=== PATIENT | female | born 1965 | race Caucasian/White ===

== ENCOUNTER → 2016-08-09 | Day surgery (SDC) | payer OTHER ==
--- NOTE | 2016-08-08 17:56 | TH ---
cc: DARREL MORAES M.D. DATE 08/09/2016 DATE OF 1965 PROCEDURE TO BE PERFORMED Slim lipoma of the thighs and torso. HISTORY OF PRESENT ILLNESS A pleasant, otherwise healthy 46-year-old female that has some small areas of lipodystrophy on the areas previously describesd. She is here today to undergo SlimLipo. PAST MEDICAL HISTORY The patient has past medical history that does include: Knee surgery in 2009. MEDICATIONS The only medications as needed are: 1. Ambien. 2. Lexapro. SOCIAL HISTORY Her habits are benign. REVIEW OF SYSTEMS Otherwise unremarkable. PHYSICAL EXAM CONSTITUTIONAL: General appearance. The patient is a well-developed female in no acute distress. Body habitus is within normal limits. There appear to be no deformities. Appears to have attention to grooming. HEENT: Eyes Conjunctivae and lids are within normal anatomical limits. The pupils are reactive to light and accommodation, size, and symmetry. There is no evidence of exudate, hemorrhage, or vessel change. Ears, mouth, nose, and throat The external inspection of the ears and nose fails to demonstrate any pathology, scars, lesions, or masses. Nasal mucosa, septum, and turbinates appear to be well hydrated as well as the lips and gums. No evidence of masses in the hypopharynx or submental area. RESPIRATORY: The patient shows no evidence of intercostal refractions. Otherwise, lungs are clear to auscultation without any abnormal sounds or rubs. CARDIOVASCULAR: The patient has a normal heart rate and rhythm. There is no evidence of noticed carotid bruits. Femoral pulses and pedal pulses in extremities are also within normal limits. GASTROINTESTINAL/ABDOMEN: Soft with no evidence of masses or tenderness. Unable to palpate the liver or spleen. No evidence of hernia. MUSCULOSKELETAL: Appears to be reasonable range of motion on the head, neck, spine, ribs, pelvis, right upper extremity, left upper extremity, right lower extremity, and left lower extremity. The muscle strength and tone appears to be equal and within accepted limits. SKIN: There is no rashes, lesions, or ulcers on the trunk, back, and extremities. NEUROLOGICAL: Examination is grossly normal. PSYCHIATRIC: The patient appears to have good orientation of time, place, and person. Does not appear to have any mood effects of depression, anxiety, or agitation. There are small areas of lipodystrophy located on the upper and lower abdomen, flanks and back as well as the lateral, anterior mid and thighs including the medial knees. My recommendation is SlimLipo. The risks and possible complications were discussed. MD MAURA Briones/CHAPO /5:03 PM /5:42 PM
[~2016-08-09] MED LIST: ACETAMINOPHEN 1000 MG/100 ML VIAL IV ONE; ACETAMINOPHEN/HYDROcodone 325 MG/5 MG TAB ONE; LACTATED RINGER'S 1000 ML INJ 1,000 ML ONE; LIDOCAINE HCL 1% PF 30 ML VIAL ONE; MIDAZOLAM HCL 2 MG/2 ML VIAL ONE; ONDANSETRON HCL 4 MG/2 ML VIAL IV PUSH ONE; PROPOFOL 200 MG/20 ML AMP IV ONE; ceFAZolin INJ 1,000 MG VIAL ONE
--- NOTE | 2016-08-09 09:22 | TN ---
cc: FRANCO BRYAN M.D. DATE OF SURGERY 08/09/2016 PREOPERATIVE DIAGNOSIS Lipodystrophy of the torso and thighs. POSTOPERATIVE DIAGNOSIS Lipodystrophy of the torso and thighs. PROCEDURE Slim Lipo SURGEON Franco Bryan MD ANESTHESIA Was LMA general ESTIMATED BLOOD LOSS Minimal COMPLICATIONS None DRAINS None TOTAL I's and O's 2100 in and close to 1300 out ENERGY UTILIZED 60,000 joules at 2019 PROCEDURE She was properly consented, marked, properly anesthetized. The skin sterilized with Betadine solution and a circumferential tulip draping body prep was performed. Puncture wounds were done with an 11 blade and a diluted lidocaine was infiltrated in the following mixture. In 1000 cc of normal saline, 30 cc of 1% lidocaine plain was mixed and 1 cc epinephrine 1:1000. In the upper and lower abdomen, flanks, back, inner, outer, and posterior and lateral thighs, a total of close to 2100 cc was infiltrated. Energy was properly delivered systematically by quadrants in the abdomen, flanks and each quadrant of the thigh for a grand total of 60,000 joules at 2020. As the patient was rotated from [id number] we were able to the suction the effluent utilizing the 2.5 mm microwave cannula until achieving the best contour possible. With this, I proceeded and closed each and every one of the punctures wounds utilizing 5-0 chromic suture and Steri-Strips. Overall, a good contour was achieved as we compare [id number]. Good viability of tissue was noted at the end of the case. A compression girdle was applied thereafter. Overall, the patient tolerated the procedure well. She was awakened and extubated in the operating room. She was transferred back to the postanesthesia care unit in stable condition. There were no complications appreciated. The patient tolerated the procedure fairly well. MD MAURA Briones/LEONCIO /9:04 AM /9:12 AM
== END | disposition home or self-care (01) ==
LOC: ESDC 06:18
PROVIDERS: ATTEND Plastic Surgery
DX: Z41.1 Encounter for cosmetic surgery (principal)
CPT/HCPCS: 00300; 00400; 15877; 15879; J0131; J0690; J2250; J2405; J3010; J7120